=== PATIENT | male | born 1935 | race Caucasian/White ===

== ENCOUNTER 2017-05-15 21:56 | Emergency (ER) | payer OTHER, MEDICARE ==
--- NOTE | 2017-05-15 23:06 | EDM.PDOC ---
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 ED EXAM, ENT - Physical Exam Exam: See Below Exam Limited By: No Limitations Ears: Auricular Tenderness (right posterior tip 4mm biopsy site dry no active bleeding) Head: Atraumatic, Normocephalic Respiratory/Chest: No Respiratory Distress, Lungs Clear, Normal Breath Sounds Cardiovascular: Regular Rate, Rhythm Neurological: Alert, Oriented, Normal Cognition Skin: Wound/Incision (right ear post procedure for skin cancer , no active bleeding.) Course - Vital Signs Last Recorded V/S: Last Vital Signs Temp 97.6 F 05/15/17 22:06 Pulse 69 05/15/17 22:06 Resp 18 05/15/17 22:06 BP 135/52 L 05/15/17 22:06 Pulse Ox 96 05/15/17 22:06 Departure - Departure Time of Disposition: 23:02 Disposition: Home, Self-Care 01 Condition: Good Clinical Impression: Postoperative hemorrhage of skin following dermatologic procedure - Discharge Information Instructions: Wound Care, Adult Referrals: PCP,Unobtain [Primary Care Provider] - Forms: ED Department Discharge Additional Instructions: continue to monitor if recurrent bleeding apply pressure to area dressing change as directed by chlorine cells operator
== END 2017-05-15 23:09 | disposition home or self-care (01) ==
LOC: DL.ED 21:56
DX: L76.21 Postprocedural hemorrhage of skin and subcutaneous tissue following a dermatologic procedure (principal); I10 Essential (primary) hypertension; E11.9 Type 2 diabetes mellitus without complications
CPT/HCPCS: 99281; 99282

== ENCOUNTER 2021-07-08 05:28 | Day surgery (SDC) | payer MEDICARE, OTHER ==
[~2021-07-08 05:28] MED LIST: Sodium Chloride 0.9% 10 ML Syringe FLUSH SCH
[2021-07-08] MEDS ORDERED: fentaNYL 100 MCG/2 ML SDV IV ONE ×4 (05:29→07:19)
[2021-07-08] MEDS ORDERED: Midazolam 1 MG/ML 2 ML SDV IV ONE ×4 (05:29→07:21)
[2021-07-08] MEDS ORDERED: Dextrose 5%-0.45% NaCl 1,000 ML IV SCH (06:00)
[2021-07-08] MEDS ORDERED: Sodium Chloride 0.9% 10 ML Syringe FLUSH PRN (06:00)
[2021-07-08] MEDS ORDERED: Midazolam 1 MG/ML 2 ML SDV ONE (06:10)
[2021-07-08] MEDS ORDERED: fentaNYL 100 MCG/2 ML SDV ONE (06:11)
== END 2021-07-08 09:49 | disposition home or self-care (01) ==
LOC: DL.ENDO 05:28
PROVIDERS: ATTEND Internal Medicine Gastroenterology
DX: D12.2 Benign neoplasm of ascending colon (principal); K64.8 Other hemorrhoids; D50.9 Iron deficiency anemia, unspecified; E66.09 Other obesity due to excess calories; E11.22 Type 2 diabetes mellitus with diabetic chronic kidney disease; N40.0 Benign prostatic hyperplasia without lower urinary tract symptoms; I12.9 Hypertensive chronic kidney disease with stage 1 through stage 4 chronic kidney disease, or unspecified chronic kidney disease; N18.9 Chronic kidney disease, unspecified; I48.91 Unspecified atrial fibrillation; E03.9 Hypothyroidism, unspecified; D69.6 Thrombocytopenia, unspecified; G47.30 Sleep apnea, unspecified; F43.10 Post-traumatic stress disorder, unspecified; Z68.29 Body mass index [BMI] 29.0-29.9, adult; Z98.49 Cataract extraction status, unspecified eye; Z98.890 Other specified postprocedural states; Z87.2 Personal history of diseases of the skin and subcutaneous tissue; Z86.73 Personal history of transient ischemic attack (TIA), and cerebral infarction without residual deficits; Z87.09 Personal history of other diseases of the respiratory system; Z86.69 Personal history of other diseases of the nervous system and sense organs; Z87.39 Personal history of other diseases of the musculoskeletal system and connective tissue; Z01.812 Encounter for preprocedural laboratory examination; Z20.822 Contact with and (suspected) exposure to COVID-19
CPT/HCPCS: 88305; J2250; J3010; J7042; U0002

== ENCOUNTER 2021-07-12 06:26 | Day surgery (SDC) | payer MEDICARE, OTHER ==
[~2021-07-12 06:26] MED LIST changes: +Midazolam 1 MG/ML 2 ML SDV ONE; -Sodium Chloride 0.9% 10 ML Syringe FLUSH SCH; +fentaNYL 100 MCG/2 ML SDV ONE
[2021-07-12] MEDS ORDERED: fentaNYL 100 MCG/2 ML SDV IV ONE ×3 (06:27→08:18)
[2021-07-12] MEDS ORDERED: Midazolam 1 MG/ML 2 ML SDV IV ONE ×3 (06:27→08:20)
[2021-07-12] MEDS ORDERED: Sodium Chloride 0.9% 10 ML Syringe FLUSH PRN (07:29)
[2021-07-12] MEDS ORDERED: Dextrose 5%-0.45% NaCl 1,000 ML IV SCH (07:30)
[2021-07-12] MEDS ORDERED: Sodium Chloride 0.9% 10 ML Syringe FLUSH SCH (09:00)
== END 2021-07-12 10:34 | disposition home or self-care (01) ==
LOC: DL.ENDO 06:26
PROVIDERS: ATTEND Internal Medicine Gastroenterology
DX: K29.80 Duodenitis without bleeding (principal); K31.89 Other diseases of stomach and duodenum; D50.9 Iron deficiency anemia, unspecified; I78.1 Nevus, non-neoplastic; E66.09 Other obesity due to excess calories; E11.22 Type 2 diabetes mellitus with diabetic chronic kidney disease; E03.9 Hypothyroidism, unspecified; N18.9 Chronic kidney disease, unspecified; I48.91 Unspecified atrial fibrillation; L40.9 Psoriasis, unspecified; G47.30 Sleep apnea, unspecified; N40.0 Benign prostatic hyperplasia without lower urinary tract symptoms; F43.10 Post-traumatic stress disorder, unspecified; I12.9 Hypertensive chronic kidney disease with stage 1 through stage 4 chronic kidney disease, or unspecified chronic kidney disease; Z86.73 Personal history of transient ischemic attack (TIA), and cerebral infarction without residual deficits; Z98.890 Other specified postprocedural states; Z68.29 Body mass index [BMI] 29.0-29.9, adult
CPT/HCPCS: 87077; J2250; J3010; J7042

== ENCOUNTER 2022-01-31 11:31 | Emergency (ER) | payer MEDICARE, OTHER ==
[2022-01-31 13:08] LABS: ANION GAP 10.3 mEq/L (7-13); CHLORIDE,CL 97 mmol/L (98-107); SODIUM,NA 136 mmol/L (136-145)
[2022-01-31 13:13] LABS: ESTIMATED GFR 54 mL/min (>=60)
[2022-01-31 13:16] LABS: O2 DELIVERY DEVICE ROOM AIR
[2022-01-31 13:17] LABS: ALLEN TEST PERFORMED
[2022-01-31 13:18] LABS: O2 SATURATION ARTERIAL 96 % (95-100); PCO2 ARTERIAL 41 mmHg (35-45); PO2 ARTERIAL 77 mmHg (70-100)
[2022-01-31 13:20] LABS: BASE EXCESS ARTERIAL 4 mmol/L ((-2)-(+3))
[2022-01-31 14:08] LABS: CORONAVIRUS COVID-19 NAA NEGATIVE (NEGATIVE)
== END 2022-01-31 13:59 | disposition home or self-care (01) ==
LOC: DL.ED 11:31
DX: E11.65 Type 2 diabetes mellitus with hyperglycemia (principal); I10 Essential (primary) hypertension; Z79.82 Long term (current) use of aspirin; Z79.899 Other long term (current) drug therapy; Z79.4 Long term (current) use of insulin; Z79.84 Long term (current) use of oral hypoglycemic drugs; Z20.822 Contact with and (suspected) exposure to COVID-19
CPT/HCPCS: 0240U; 36415; 36600; 80053; 81001; 82009; 82803; 82947; 83605; 83735; 84484; 85025; 93005; 99285

== ENCOUNTER 2022-12-30 12:49 | Emergency (ER) | payer MEDICARE, OTHER ==
[2022-12-30] MEDS ORDERED: Sodium Chloride 0.9% 10 ML Syringe FLUSH PRN (13:11)
[2022-12-30 13:24] LABS: HEMATOCRIT 33.3 % (40.0-54.0); MEAN CORPUSCULAR VOLUME 93.8 fL (80-100); PLATELET COUNT,PLT 193 10^3/uL (150-450); RED BLOOD CELL COUNT 3.55 10^6/uL (4.6-6.2); WHITE BLOOD CELL COUNT,WBC 7.2 10^3/uL (5.0-10.0)
[2022-12-30 13:27] LABS: BASOPHILS PERCENT AUTO 0.8 % (0.0-1.0); EOSINOPHILS PERCENT AUTO 11.4 % (1.0-3.0); LYMPHOCYTES PERCENT AUTO 12.5 % (20.5-50.1); MONOCYTES PERCENT AUTO 8.9 % (2-8); NEUTROPHILS PERCENT AUTO 66.4 % (42.2-75.2)
[2022-12-30 13:38] LABS: ANION GAP 12.7 mEq/L (7-13); CALCIUM 9.2 mg/dL (8.5-10.1); CREATININE 1.36 mg/dL (0.70-1.30); EST CRCL DRUG DOSING (CG) 43.59 mL/min; POTASSIUM,K 3.7 mmol/L (3.5-5.1)
[2022-12-30 13:47] LABS: EOSINOPHILS PERCENT MAN 14 % (1-3); LYMPHOCYTES PERCENT MAN 13 % (20-50); MONOCYTES PERCENT MAN 6 % (2-8); SEG NEUTROPHILS PERCENT MAN 66 % (42-75)
[2022-12-30] MEDS ORDERED: Cephalexin 500 MG Cap PO ONE (14:25)
== END 2022-12-30 14:29 | disposition home or self-care (01) ==
LOC: DL.ED 12:49
DX: L03.115 Cellulitis of right lower limb (principal); I48.91 Unspecified atrial fibrillation; E03.9 Hypothyroidism, unspecified; E11.22 Type 2 diabetes mellitus with diabetic chronic kidney disease; I12.9 Hypertensive chronic kidney disease with stage 1 through stage 4 chronic kidney disease, or unspecified chronic kidney disease; N18.9 Chronic kidney disease, unspecified; Z79.4 Long term (current) use of insulin; Z79.899 Other long term (current) drug therapy
CPT/HCPCS: 36415; 80048; 85025; 93971; 99284; A9270

== ENCOUNTER 2023-01-02 08:01 | Emergency (ER) | payer MEDICARE, OTHER ==
[2023-01-02] MEDS ORDERED: Sodium Chloride 0.9% 10 ML Syringe FLUSH PRN (08:18)
[2023-01-02 08:25] LABS: HEMATOCRIT 37.4 % (40.0-54.0); HEMOGLOBIN 12.4 g/dL (14.0-18.0); MEAN CORPUSCULAR HEMOGLOBIN 31.1 pg (27.0-34.0); MEAN CORPUSCULAR HGB CONC 33.2 g/dL (33.0-35.0); MEAN CORPUSCULAR VOLUME 93.7 fL (80-100); PLATELET COUNT,PLT 284 10^3/uL (150-450); RED BLOOD CELL COUNT 3.99 10^6/uL (4.6-6.2); WHITE BLOOD CELL COUNT,WBC 10.6 10^3/uL (5.0-10.0)
[2023-01-02 08:28] LABS: BASOPHILS PERCENT AUTO 0.8 % (0.0-1.0); EOSINOPHILS PERCENT AUTO 10.2 % (1.0-3.0); LYMPHOCYTES PERCENT AUTO 15.2 % (20.5-50.1); MONOCYTES PERCENT AUTO 7.2 % (2-8); NEUTROPHILS PERCENT AUTO 66.6 % (42.2-75.2)
[2023-01-02 08:42] LABS: BAND PERCENT MAN 3 %; EOSINOPHILS PERCENT MAN 8 % (1-3); LYMPHOCYTES PERCENT MAN 13 % (20-50); MONOCYTES PERCENT MAN 3 % (2-8); PROTHROMBIN TIME 10.4 SEC (9.0-12.0); PTT,PARTIAL THROMBOPLSTIN TIME 24.7 SEC (22.0-34.0); SEG NEUTROPHILS PERCENT MAN 73 % (42-75)
[2023-01-02 08:44] LABS: A/G RATIO 0.9; ALBUMIN 3.6 g/dL (3.4-5.0); ANION GAP 13.8 mEq/L (7-13); BILIRUBIN TOTAL 0.7 mg/dL (0.2-1.0); BUN/CREATININE RATIO 14.1 (No establ ref range); CREATININE 1.42 mg/dL (0.70-1.30); EST CRCL DRUG DOSING (CG) 44.22 mL/min; POTASSIUM,K 3.8 mmol/L (3.5-5.1); PROTEIN TOTAL,TP 7.7 g/dL (6.4-8.2)
[2023-01-02 08:49] LABS: CALCIUM 8.6 mg/dL (8.5-10.1)
[2023-01-02] MEDS ORDERED: Diphtheria,Pertussis(Acell),Tetanus Vaccine 0.5 ML Syringe IM ONE (09:15)
== END 2023-01-02 12:33 | disposition home or self-care (01) ==
LOC: DL.ED 08:01
DX: S01.312A Laceration without foreign body of left ear, initial encounter (principal); S00.03XA Contusion of scalp, initial encounter; I48.91 Unspecified atrial fibrillation; I12.9 Hypertensive chronic kidney disease with stage 1 through stage 4 chronic kidney disease, or unspecified chronic kidney disease; E11.22 Type 2 diabetes mellitus with diabetic chronic kidney disease; N18.9 Chronic kidney disease, unspecified; M10.9 Gout, unspecified; E03.9 Hypothyroidism, unspecified; Z79.82 Long term (current) use of aspirin; Z79.4 Long term (current) use of insulin; Z79.899 Other long term (current) drug therapy; Z79.01 Long term (current) use of anticoagulants; W17.89XA Other fall from one level to another, initial encounter; M25.561 Pain in right knee; M25.461 Effusion, right knee; M17.11 Unilateral primary osteoarthritis, right knee
CPT/HCPCS: 12001; 12011; 36415; 70450; 72125; 73721-RT; 80053; 85025; 85610; 85730; 90471; 93971; 99284; 99284-25

== ENCOUNTER 2023-03-09 11:47 | Emergency (ER) | payer MEDICARE, OTHER ==
[2023-03-09] MEDS ORDERED: Sodium Chloride 0.9% 10 ML Syringe FLUSH PRN (13:00)
[2023-03-09 13:13] LABS: BASOPHILS PERCENT AUTO 0.9 % (0.0-1.0); EOSINOPHILS PERCENT AUTO 5.8 % (1.0-3.0); HEMATOCRIT 40.6 % (40.0-54.0); HEMOGLOBIN 13.7 g/dL (14.0-18.0); LYMPHOCYTES PERCENT AUTO 11.5 % (20.5-50.1); MEAN CORPUSCULAR HEMOGLOBIN 31.9 pg (27.0-34.0); MEAN CORPUSCULAR HGB CONC 33.7 g/dL (33.0-35.0); MEAN CORPUSCULAR VOLUME 94.4 fL (80-100); MONOCYTES PERCENT AUTO 10.2 % (2-8); NEUTROPHILS PERCENT AUTO 71.6 % (42.2-75.2); PLATELET COUNT,PLT 256 10^3/uL (150-450); WHITE BLOOD CELL COUNT,WBC 14.2 10^3/uL (5.0-10.0)
[2023-03-09 13:32] LABS: ALANINE AMINOTRANSFERASE,ALT 17 U/L (16-63); ALBUMIN 3.3 g/dL (3.4-5.0); ALKALINE PHOSPHATASE 134 U/L (46-116); ANION GAP 13.3 mEq/L (7-13); ASPARTATE AMNIOTRANSFERASE,AST 30 U/L (15-37); BILIRUBIN TOTAL 0.9 mg/dL (0.2-1.0); BLOOD UREA NITROGEN,BUN 19 mg/dL (7-18); BUN/CREATININE RATIO 14.3 (No establ ref range); C-REACTIVE PROTEIN 6.83 ng/dL (<=0.50); CALCIUM 9.3 mg/dL (8.5-10.1); CARBON DIOXIDE,CO2 31 mmol/L (21-32); CHLORIDE,CL 99 mmol/L (98-107); CREATININE 1.33 mg/dL (0.70-1.30); GLUCOSE RANDOM 109 mg/dL (70-99); POTASSIUM,K 3.3 mmol/L (3.5-5.1); PROTEIN TOTAL,TP 7.9 g/dL (6.4-8.2); SODIUM,NA 140 mmol/L (136-145)
[2023-03-09 13:37] LABS: LACTIC ACID 1.3 mmol/L (0.4-2.0)
[2023-03-09 13:41] LABS: A/G RATIO 0.72; ESTIMATED GFR 52 mL/min (>=60)
[2023-03-09] MEDS ORDERED: Iopamidol 612 MG/ML 100 ML Bottle IVPUSH ONE (13:59)
[2023-03-09] MEDS ORDERED: Dexamethasone 4 MG/ML SDV IVPUSH ONE (15:54)
[2023-03-09] MEDS ORDERED: cefTRIAXone 2 GM Vial IVPUSH ONE (15:54)
== END 2023-03-09 16:15 | disposition home or self-care (01) ==
LOC: DL.ED 11:47
DX: J36 Peritonsillar abscess (principal); I12.9 Hypertensive chronic kidney disease with stage 1 through stage 4 chronic kidney disease, or unspecified chronic kidney disease; N18.9 Chronic kidney disease, unspecified; I48.91 Unspecified atrial fibrillation; E11.9 Type 2 diabetes mellitus without complications; E03.9 Hypothyroidism, unspecified; Z86.73 Personal history of transient ischemic attack (TIA), and cerebral infarction without residual deficits; Z79.84 Long term (current) use of oral hypoglycemic drugs; Z79.899 Other long term (current) drug therapy; Z79.82 Long term (current) use of aspirin
CPT/HCPCS: 36415; 70491; 80053; 83605; 85025; 86140; 93005; 96374; 96375; 99284-25; J0696; J1100; J3490; Q9967